=== PATIENT | male | born 1960 | race Caucasian/White ===

== ENCOUNTER 2020-10-03 22:07 | Emergency (ER) | payer BC, SELFPAY ==
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
[2020-10-03 22:08] VITALS: BP 131/81; PULSE 76; RESP 18; TEMP 36.4; O2SAT 96
[2020-10-03] MEDS: TETANUS,DIPHTHERIA,AC PERTUSSIS ADULT (0.5 ML) BOOSTRIX IM (23:07)
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
[2020-10-04 01:48] VITALS: BP 129/75; PULSE 77; RESP 18; O2SAT 100
== END 2020-10-04 01:54 | disposition home or self-care (01) ==
PROVIDERS: Emergency Provider Emergency Medicine; PCP Family Medicine
DX: S01.112A Laceration without foreign body of left eyelid and periocular area, initial encounter (principal); Z23 Encounter for immunization; I10 Essential (primary) hypertension; E11.9 Type 2 diabetes mellitus without complications; M10.00 Idiopathic gout, unspecified site; E78.2 Mixed hyperlipidemia; E66.9 Obesity, unspecified; Z68.36 Body mass index [BMI] 36.0-36.9, adult; Z87.891 Personal history of nicotine dependence; M47.816 Spondylosis without myelopathy or radiculopathy, lumbar region; V28.4XXA Motorcycle driver injured in noncollision transport accident in traffic accident, initial encounter
CPT/HCPCS: 12013; 70450; 72100; 90471; 90715; 99284

== ENCOUNTER 2022-03-22 02:53 | Day surgery (SDC) | payer BC, SELFPAY ==
[2022-03-17 15:18] VITALS: BMI 36.9
--- NOTE | 2022-03-19 20:49 | PM.HPGS ---
History of Present Illness History of Present Illness Consent: Risks, benefits, and alternatives have been discussed and questions answered. Patient agrees to proceed with procedure. Chief complaint: neoplasm screening Narrative: Aneudy Royal is a 61 year old male Referred for colon cancer screening. His last colonoscopy was 10 years ago. Review of Systems Review of Systems: All systems reviewed & are unremarkable except as noted in HPI and below PMFSH Past Medical History Medical History Essential (primary) hypertension Idiopathic gout, unspecified site Mixed hyperlipidemia Obesity, unspecified Type 2 diabetes mellitus without complications Family History Family History Father Hypertension Cerebrovascular accident, Onset Age: 82 Patient's father is Mother Hypertension Family history of elevated blood lipids Family history of alcoholism Family history of diabetes mellitus in first degree relative, Onset Age: 74 Patient's mother is Social History Social History Social History: Smoking packs per day: 1.5 Smoking cigarettes per day: 30.0 Years smoked: 10 Smoking pack-years: 15.00 Smoking status: Former smoker Tobacco type: cigarettes Second hand tobacco smoke exposure: No Smoking end date: 04/04/15 Alcohol intake: current Drinks per week: 3 Substance use: never Substance use type: does not use Living arrangements: with family Gender identity (if verbalized by the patient): Male Sexual Orientation (if Verbalized by the Patient): Straight or Heterosexual Spiritual care concerns: No Meds Home Medications and Allergies Home Medications Medication Instructions Recorded Confirmed Type allopurinol 100 mg tablet 50 mg PO DAILY 03/17/22 03/22/22 History atorvastatin 20 mg tablet 20 mg PO DAILY 03/17/22 03/22/22 History lisinopril 20 1 tablet PO DAILY 03/17/22 03/22/22 History mg-hydrochlorothiazide 12.5 mg tablet sitagliptin phosphate 50 1 tablet PO BID 03/17/22 03/22/22 History mg-metformin 1,000 mg tablet (David) Allergies Allergy/AdvReac Type Severity Reaction Status Date / Time No Known Allergies Allergy Verified 03/22/22 06:18 Exam Const: General: alert Orientation/consciousness: patient oriented x3 Resp: Auscultation: clear to auscultation bilaterally Cardio: Rhythm: regular rhythm GI: GI Palp: Yes Soft to palpation and No Tenderness to palpation present (GI) Neuro: General: patient oriented x3 Assessment and Plan Assessment and plan (1) Colon cancer screening: Code(s): Z12.11 - Encounter for screening for malignant neoplasm of colon Status: Acute Assessment and Plan: Colonoscopy with possible biopsy or polypectomy or cautery or injection of substances.
--- NOTE | 2022-03-21 09:26 | WPDANESEPPF ---
Anes - Initial Pre Proc Eval Procedure: Operation Date: 03/22/22 07:30 Proposed Procedures p Screening Colonoscopy - Oscar Coppola MD Date/Time: 03/21/22 09:26 Surgeon: Oscar Coppola MD Pre Op Diagnosis: neoplasm screening Patient Data Age: 61 Gender: M Height: 1.75 m Weight: 113.5 kg Allergies Allergy/AdvReac Type Severity Reaction Status Date / Time No Known Allergies Allergy Verified 03/22/22 06:18 Home Medications Medication Instructions Recorded Confirmed Type allopurinol 100 mg tablet 50 mg PO DAILY 03/17/22 03/22/22 History atorvastatin 20 mg tablet 20 mg PO DAILY 03/17/22 03/22/22 History lisinopril 20 1 tablet PO DAILY 03/17/22 03/22/22 History mg-hydrochlorothiazide 12.5 mg tablet sitagliptin phosphate 50 1 tablet PO BID 03/17/22 03/22/22 History mg-metformin 1,000 mg tablet (Janumet) Patient hx anesthesia problems: none Family hx anesthesia problems: none Results Review: All pre-operative results and documents have been reviewed as part of the pre-operative evaluation. [facility] Past Medical History Medical History (Updated 08/17/21 @ 10:01 by Roberta Arreguin NP) Essential (primary) hypertension Idiopathic gout, unspecified site Mixed hyperlipidemia Obesity, unspecified Type 2 diabetes mellitus without complications Family History Family History Father Hypertension Cerebrovascular accident, Onset Age: 82 Patient's father is Mother Hypertension Family history of elevated blood lipids Family history of alcoholism Family history of diabetes mellitus in first degree relative, Onset Age: 74 Patient's mother is Social History Social History Social History: Smoking packs per day: 1.5 Smoking cigarettes per day: 30.0 Years smoked: 10 Smoking pack-years: 15.00 Smoking status: Former smoker Tobacco type: cigarettes Second hand tobacco smoke exposure: No Smoking end date: 04/04/15 Alcohol intake: current Drinks per week: 3 Substance use: never Substance use type: does not use Living arrangements: with family Gender identity (if verbalized by the patient): Male Sexual Orientation (if Verbalized by the Patient): Straight or Heterosexual Spiritual care concerns: No Anes - Eval Final PreProcedure Day of Procedure 03/21/22 09:26 Patient weight: obese Heart: regular rate and rhythm Lungs: clear to auscultation and normal air movement Airway: Mallampati scale class II Neurological: alert and oriented Last oral intake: >/= 8 hours ASA classification: III Emergent: no Anesthetic plan: proceed Anesthesia type and monitoring: general GIVS Results Review: All pre-operative results and documents have been reviewed as part of the pre-operative evaluation. Informed Consent: The patient's anesthetic plan and its attendant risks and benefits were discussed with the patient/family/POA. Questions were solicited and answers provided to the satisfaction of the patient/family/POA.
[2022-03-22 06:21] VITALS: PULSE 78; RESP 18; TEMP 36.3; O2SAT 95
[2022-03-22] MEDS: LACTATED RINGERS 1,000 ML 150 ML IV CONT (06:32)
[2022-03-22 06:33] LABS: Glucose Point of Care 184 mg/dl (65-105)
[2022-03-22 07:56] VITALS: BP 122/86; PULSE 76; RESP 18; O2SAT 95
[2022-03-22 08:06] VITALS: BP 135/90; PULSE 78; RESP 18; O2SAT 94
[2022-03-22 08:16] VITALS: BP 128/89; PULSE 76; RESP 18; O2SAT 92
== END 2022-03-22 08:24 | disposition home or self-care (01) ==
PROVIDERS: PCP Family Medicine; Visit Provider Internal Medicine Gastroenterology
PROC: 0DJD8ZZ Inspection of Lower Intestinal Tract, Via Natural or Artificial Opening Endoscopic (ICD-10-PCS; CPT 45378; principal; 2022-03-22 07:30)
DX: Z12.11 Encounter for screening for malignant neoplasm of colon (principal); K62.1 Rectal polyp; I10 Essential (primary) hypertension; E11.9 Type 2 diabetes mellitus without complications; E78.2 Mixed hyperlipidemia; M10.9 Gout, unspecified; E66.9 Obesity, unspecified; Z68.35 Body mass index [BMI] 35.0-35.9, adult; Z87.891 Personal history of nicotine dependence
CPT/HCPCS: 45385; 82948; 88305; J2001; J2704; J7120

== ENCOUNTER 2023-03-01 15:23 | Outpatient (CLI) | payer BC, SELFPAY ==
--- NOTE | ~2023-03-01 | XR_ITS ---
XR knee RT 3V 03/01/2023 15:44 Indication: Knee pain Procedure: 3 views right knee Comparison: No prior studies for comparison. Findings: No fracture, subluxation or dislocation. No significant soft tissue abnormality. No foreign bodies. No joint effusion. There is anatomic alignment. Impression: 1: No significant bone or joint abnormality. Reviewed, dictated and finalized at location L. ILLER Impression: 1: No significant bone or joint abnormality.
--- NOTE | ~2023-03-01 | XR_ITS ---
XR knee LT 3V 03/01/2023 15:44 Indication: Left knee pain after fall Procedure: 3 views left knee Comparison: No prior studies for comparison. Findings: There is anatomic alignment. No significant joint space narrowing. No fracture or traumatic malalignment. No joint effusion. No foreign bodies. Impression: 1: No significant bone or joint abnormality. Reviewed, dictated and finalized at location L. [employer] Impression: 1: No significant bone or joint abnormality.
== END 2023-03-01 15:24 ==
PROVIDERS: PCP Physician Assistant; Visit Provider Physician Assistant
DX: M25.561 Pain in right knee (principal); M25.562 Pain in left knee
CPT/HCPCS: 73562

== ENCOUNTER 2024-06-04 10:50 | Outpatient (CLI) | payer BC, SELFPAY | END 2024-06-04 10:51 | disposition home or self-care (01) | LOC: GOSHIMG 10:51 | PROVIDERS: PCP Physician Assistant; Visit Provider Physician Assistant | DX: M51.369 Other intervertebral disc degeneration, lumbar region without mention of lumbar back pain or lower extremity pain (principal); M43.06 Spondylolysis, lumbar region | CPT/HCPCS: 72148 ==